=== PATIENT | female | born 1980 | race Caucasian/White ===

== ENCOUNTER 2022-03-28 19:11 | Emergency (ER) | payer OTHER ==
[2022-03-28 19:18] VITALS: BP 113/73; PULSE 65; RESP 18; TEMP 98.1; BMI 31.1
[2022-03-28] MEDS ORDERED: FAMOTIDINE 20 MG TABLET PO ONE (22:08)
[2022-03-28] MEDS ORDERED: diphenhydrAMINE HCL 25 MG CAPSULE (FP) PO ONE ×2 (22:08→22:25)
[2022-03-28] MEDS ORDERED: DEXAMETHASONE SOD PHOSPHATE 10 MG/1 ML VIAL IM ONE (22:08)
[2022-03-28] MEDS ORDERED: FAMOTIDINE 20 MG TABLET ONE (22:25)
[2022-03-28] MEDS ORDERED: DEXAMETHASONE SOD PHOSPHATE 10 MG/1 ML VIAL ONE (22:26)
== END 2022-03-28 23:11 | disposition home or self-care (01) ==
LOC: JERFT 19:11
PROC: 3E0233Z Introduction of Anti-inflammatory into Muscle, Percutaneous Approach (ICD-10-PCS; principal; 2022-03-28)
DX: L50.0 Allergic urticaria (principal)
CPT/HCPCS: 99284-25; J1100